=== PATIENT | female | born 1990 | race Caucasian/White ===

== ENCOUNTER → 2017-08-16 | Outpatient (CLI) | payer OTHER ==
[~2017-08-16] MED LIST: ACET325 PO; ALBU90OI INH; Amoxicillin500 MG PO; Augmentin 875-1 EACH PO; CLARITIN10 MG PO; CODACE30 PO; CYCL10 PO; Ciprodex Otic7.5 ML LEFTEAR; Cortisporin Ear10 M1 LEFTEAR; DIPH50 PO; DOXY100 PO; EPIPEN 2-P0.3 MG/0.3 IM; FERR325 PO; HYDACE5 PO; IBUP400 PO; IBUP800 PO; IRON18 MG PO; LEVFLO500 PO; METPRE4DP PO; MULVITMINE PO; NITR100CA PO; Norco 5-325 Ta1 EACH PO; OXYACE5T PO; PROM25 PO; PYRI50 PO; Pepcid40 MG PO; Percocet 5-3251 EACH PO; Prednisone20 MG PO; Verotin-Gr Cap1 EACH PO; Zithromax Tri-500 MG PO; Zofran Odt4 MG SL
== END ==
LOC: LAB SHORT 16:28
DX: R30.0 Dysuria (principal)
CPT/HCPCS: 87077; 87086; 87186

== ENCOUNTER 2017-11-10 10:51 | Inpatient (IN) | payer OTHER ==
[~2017-11-10] VITALS: Ht 172.7 cm; Wt 80.7 kg
[~2017-11-10 10:51] MED LIST changes: -CLARITIN10 MG PO; -EPIPEN 2-P0.3 MG/0.3 IM; -IRON18 MG PO; -Percocet 5-3251 EACH PO; -Prednisone20 MG PO
[2018-01-04] MEDS ORDERED: Verotin-Gr Cap1 EACH PO (21:59)
[2018-01-04] MEDS ORDERED: CLARITIN10 MG PO (22:04)
[2018-01-04] MEDS ORDERED: Pepcid40 MG PO (22:04)
[2018-01-04] MEDS ORDERED: EPIPEN 2-P0.3 MG/0.3 IM (22:04)
[2018-01-04] MEDS ORDERED: Prednisone20 MG PO (22:04)
[2018-01-19 10:55] LABS: BASOPHILS ABSOLUTE AUTO 0.04 K/mm3 (0.00-0.23); BASOPHILS PERCENT AUTO 0 % (0-2); EOSINOPHILS ABSOLUTE AUTO 0.12 K/mm3 (0.00-0.68); EOSINOPHILS PERCENT AUTO 1 % (0-6); Hematocrit 36.5 % (33.0-51.0); Hemoglobin 12.3 g/dL (11.5-16.0); IMMATURE GRAN ABSOLUTE AUTO 0.51 K/mm3 (0.00-0.10); IMMATURE GRAN PERCENT AUTO 4 % (0-1); LYMPHOCYTES ABSOLUTE AUTO 2.52 K/mm3 (0.84-5.20); LYMPHOCYTES PERCENT AUTO 18 % (21-46); MONOCYTES ABSOLUTE AUTO 1.01 K/mm3 (0.16-1.47); MONOCYTES PERCENT AUTO 7 % (4-13); Mean Corpuscular HGB 28.5 pg (26.0-34.0); Mean Corpuscular HGB Conc 33.7 g/dL (31.5-36.5); Mean Corpuscular Volume 85 fL (80-100); Mean Platelet Volume 9.9 fL (9.1-12.4); NEUTROPHILS ABSOLUTE AUTO 9.93 K/mm3 (1.96-9.15); NEUTROPHILS PERCENT AUTO 70 % (41-73); Platelet Count 284 K/mm3 (150-400); RDW Coefficient Variation 14.1 % (11.7-14.2); RDW Standard Deviation 43.4 fL (35.1-46.3); Red Blood Cell Count 4.32 M/mm3 (3.80-5.20); White Blood Cell Count 14.13 K/mm3 (4.00-11.30)
[2018-01-20] MEDS ORDERED: IRON18 MG PO (07:27)
[2018-01-20 09:27] LABS: PO2 Cord - Arterial 15.8 mmHg (16-20); pH Cord - Arterial 7.31 (7.28-7.35)
[2018-01-20 09:28] LABS: PCO2 Cord - Venous 44.9 mmHg (40-50); PO2 Cord - Venous 26.4 mmHg (28-32); pH Umbilical Cord - Venous 7.37 (7.26-7.35)
[2018-01-21 05:28] LABS: Hematocrit 32.4 % (33.0-51.0); Hemoglobin 10.9 g/dL (11.5-16.0); Mean Corpuscular HGB Conc 33.6 g/dL (31.5-36.5); Mean Corpuscular Volume 86 fL (80-100); Mean Platelet Volume 10.2 fL (9.1-12.4); Platelet Count 223 K/mm3 (150-400); RDW Coefficient Variation 14.3 % (11.7-14.2); RDW Standard Deviation 44.5 fL (35.1-46.3); Red Blood Cell Count 3.76 M/mm3 (3.80-5.20); White Blood Cell Count 13.39 K/mm3 (4.00-11.30)
[2018-01-21] MEDS ORDERED: IBUP800 PO (12:58)
[2018-01-21] MEDS ORDERED: Percocet 5-3251 EACH PO (12:58)
== END 2018-01-21 14:00 | disposition home or self-care (01) | DRG 766 ==
LOC: BC 01-20 06:33
PROVIDERS: Obstetrics & Gynecology
PROC: 10D00Z1 Extraction of Products of Conception, Low, Open Approach (ICD-10-PCS; principal; 2018-01-20 08:30)
DX: O34.219 Maternal care for unspecified type scar from previous cesarean delivery (principal); Z37.0 Single live birth; Z3A.38 38 weeks gestation of pregnancy; K21.9 Gastro-esophageal reflux disease without esophagitis; O99.62 Diseases of the digestive system complicating childbirth; O69.81X0 Labor and delivery complicated by cord around neck, without compression, not applicable or unspecified
CPT/HCPCS: 36415; 82803; 85025; 85027; 86850; 86900; 86901; J0694; J1885; J2590; J2765; J3010; J7120

== ENCOUNTER 2018-01-04 20:41 | Emergency (ER) | payer OTHER ==
[~2018-01-04] VITALS: Ht 172.7 cm; Wt 77.6 kg
[2018-01-04] MEDS ORDERED: Verotin-Gr Cap1 EACH PO (21:59)
[2018-01-04] MEDS ORDERED: CLARITIN10 MG PO (22:04)
[2018-01-04] MEDS ORDERED: EPIPEN 2-P0.3 MG/0.3 IM (22:04)
[2018-01-04] MEDS ORDERED: Pepcid40 MG PO (22:04)
[2018-01-04] MEDS ORDERED: Prednisone20 MG PO (22:04)
== END 2018-01-04 22:13 | disposition home or self-care (01) ==
LOC: ER 20:41
DX: O99.89 Other specified diseases and conditions complicating pregnancy, childbirth and the puerperium (principal); T78.40XA Allergy, unspecified, initial encounter; R21 Rash and other nonspecific skin eruption; Z88.8 Allergy status to other drugs, medicaments and biological substances; O99.333 Smoking (tobacco) complicating pregnancy, third trimester; F17.210 Nicotine dependence, cigarettes, uncomplicated; Z3A.36 36 weeks gestation of pregnancy
CPT/HCPCS: 94640; 96374; 96375; 99283; J1100; J3490

== ENCOUNTER → 2018-01-12 | Outpatient (CLI) | payer OTHER ==
[~2018-01-12] MED LIST changes: +CLARITIN10 MG PO; +EPIPEN 2-P0.3 MG/0.3 IM; +Prednisone20 MG PO
== END | disposition home or self-care (01) ==
LOC: LAB 16:19 → LAB SHORT 16:19
DX: R30.0 Dysuria (principal)
CPT/HCPCS: 87077; 87086; 87186

== ENCOUNTER → 2018-01-13 | Outpatient (CLI) | payer OTHER | END | disposition home or self-care (01) | LOC: LAB SHORT 11:30 → LAB 11:30 | DX: R30.0 Dysuria (principal) | CPT/HCPCS: 87077; 87086; 87186 ==

== ENCOUNTER 2020-01-13 20:52 | Emergency (ER) | payer SELFPAY ==
[~2020-01-13] VITALS: Ht 172.7 cm; Wt 83.9 kg
[~2020-01-13 20:52] MED LIST changes: +IRON18 MG PO; +Percocet 5-3251 EACH PO
== END 2020-01-13 22:45 | disposition home or self-care (01) ==
LOC: ER 20:52
DX: S93.402A Sprain of unspecified ligament of left ankle, initial encounter (principal); F17.200 Nicotine dependence, unspecified, uncomplicated; Z88.8 Allergy status to other drugs, medicaments and biological substances; W10.9XXA Fall (on) (from) unspecified stairs and steps, initial encounter
CPT/HCPCS: 73610; 99283-25

== ENCOUNTER → 2021-07-08 | Outpatient (CLI) | payer OTHER ==
[~2021-07-08] MED LIST changes: +CEPH500 PO; +MONDOXYNE NL100 MG PO
[2021-07-09 14:11] LABS: HPV 16 Negative (Negative); HPV 18 Negative (Negative); HPV OTHER HR TYPES Negative (Negative)
== END | disposition home or self-care (01) ==
LOC: LAB SHORT 16:40
PROVIDERS: Obstetrics & Gynecology
DX: Z12.4 Encounter for screening for malignant neoplasm of cervix (principal)
CPT/HCPCS: 87624; G0123

== ENCOUNTER 2021-07-25 10:07 | Emergency (ER) | payer OTHER ==
[~2021-07-25] VITALS: Ht 172.7 cm; Wt 74.8 kg
[2021-07-25] MEDS ORDERED: CYCL10 PO (10:47)
== END 2021-07-25 11:01 | disposition home or self-care (01) ==
LOC: ER 10:07
DX: M54.50 Low back pain, unspecified (principal); F17.210 Nicotine dependence, cigarettes, uncomplicated; Z87.440 Personal history of urinary (tract) infections
CPT/HCPCS: 96372; 99283-25; A9270; J1885

== ENCOUNTER 2021-09-07 12:41 | Day surgery (SDC) | payer OTHER ==
[~2021-09-07] VITALS: Ht 172.7 cm; Wt 74.2 kg
--- NOTE | 2021-09-07 14:21 | NUR ---
09/07/21 1421 Asa Goodwin ABDOMINAL AREA PREPPED WITH DURA PREP BY ORSC.HSR MARIE AREA & THIGHS PREPPED WITH BETADINE SOLUTION BY ORSC.KNM BUPIVACAINE 0.5% 30 MLS MIXED WITH EPI 0.15ML PER ORDER TO CONSTITUTE BUPIVACAINE 0.5% 1:200,000 FOR INJECTION AT OPSITE BY DR POWERS.
== END 2021-09-07 15:44 | disposition home or self-care (01) ==
LOC: ORSCSDS 12:41
PROVIDERS: Obstetrics & Gynecology
PROC: 0UT74ZZ Resection of Bilateral Fallopian Tubes, Percutaneous Endoscopic Approach (ICD-10-PCS; principal; 2021-09-07 14:00)
DX: Z30.2 Encounter for sterilization (principal); F17.210 Nicotine dependence, cigarettes, uncomplicated
CPT/HCPCS: 88302; J0171; J0330; J1100; J1885; J2250; J2405; J2704; J3010; J7120

== ENCOUNTER 2022-06-17 23:40 | Inpatient (IN) | payer OTHER ==
[~2022-06-17] VITALS: Ht 172.7 cm; Wt 77.7 kg
[2022-06-18 00:31] LABS: BASOPHILS ABSOLUTE AUTO 0.06 K/mm3 (0.00-0.23); BASOPHILS PERCENT AUTO 0 % (0-2); EOSINOPHILS ABSOLUTE AUTO 0.14 K/mm3 (0.00-0.68); EOSINOPHILS PERCENT AUTO 1 % (0-6); Hematocrit 42.4 % (33.0-51.0); Hemoglobin 14.7 g/dL (11.5-16.0); IMMATURE GRAN PERCENT AUTO 1 % (0-1); LYMPHOCYTES ABSOLUTE AUTO 3.91 K/mm3 (0.84-5.20); LYMPHOCYTES PERCENT AUTO 26 % (21-46); MONOCYTES ABSOLUTE AUTO 0.84 K/mm3 (0.16-1.47); MONOCYTES PERCENT AUTO 6 % (4-13); Mean Corpuscular HGB 29.6 pg (26.0-34.0); Mean Corpuscular HGB Conc 34.7 g/dL (31.5-36.5); Mean Corpuscular Volume 85 fL (80-100); NEUTROPHILS ABSOLUTE AUTO 9.89 K/mm3 (1.96-9.15); NEUTROPHILS PERCENT AUTO 66 % (41-73); Platelet Count 176 K/mm3 (150-400); RDW Standard Deviation 40.2 fL (35.1-46.3); Red Blood Cell Count 4.97 M/mm3 (3.80-5.20); White Blood Cell Count 14.94 K/mm3 (4.00-11.30)
[2022-06-18 01:09] LABS: Albumin, Blood 3.7 g/dL (3.4-5.0); Albumin/Globulin Ratio 1.1 (0.8-1.8); Bilirubin, Total 0.3 mg/dL (0.1-1.0); Bun/Creatinine Ratio 15.8 (12.0-20.0); Calcium, Blood 8.9 mg/dL (8.5-10.1); Creatinine, Blood 0.57 mg/dL (0.40-1.00); Globulin, Blood 3.5 g/dL (2.2-4.0); Total Protein, Blood 7.2 g/dL (6.4-8.2)
[2022-06-18] MEDS ORDERED: Ventolin/Prove6.7 GM INH ×2 (02:17)
[2022-06-18] MEDS ORDERED: Cetirizine HCl10 MG PO ×2 (02:19)
--- NOTE | 2022-06-18 04:32 | NUR ---
SUMMARY PT ARRIVED TO FLOOR IN NO DSTRESS. PT DENIES N/V. PT HAS BEEN MANAGED WELL. PT HAS REMAINED NPO. PT HAS BEEN RESTING COMFORTABLY. CALL EDDIE IN REACH.
--- NOTE | 2022-06-18 11:31 | NUR ---
REPORT PASSED TO [facility]
--- NOTE | 2022-06-18 13:45 | NUR ---
06/18/22 1345 Denise Live PATIENT ON SCHEDULED ANTIBIOTICS
[2022-06-18] MEDS ORDERED: OXYC10TA19 PO ×2 (17:13)
[2022-06-18] MEDS ORDERED: BENADRYL25 MG PO ×2 (17:20)
[2022-06-18] MEDS ORDERED: ACET325 PO ×2 (17:20)
[2022-06-18] MEDS ORDERED: IBUP200 PO ×2 (17:20)
--- NOTE | 2022-06-18 18:51 | NUR ---
DISCHARGE SUMMARY PATIENT WENT FOR [facility] THIS AFTERNOON WITH DR MOSS. RETURNED TO ROOM AT 1530. POST OP VSS. ALERT AND ORIENTED. AMBULATING TO BATHROOM. VOIDING WELL. TOLERATING REGULAR DIET AND LIQUIDS. LAP SITES C/D/I. PAIN CONTROLLED WITH PO PAIN MEDS. IV DC'D WNL. DISCHARGE ORDER GIVEN BY DR MOSS. DISCHARGE EDUCATION GIVEN ON NEW RX FOR PAIN, INCISION CARE, ACTIVITY, AND FOLLOW UP APPTS. PATIENT LEFT UNIT AT 1820 VIA WHEELCHAIR WITH FAMILY MEMBER FOR HOME.
== END 2022-06-18 19:19 | disposition home or self-care (01) | DRG 419 ==
LOC: ER 23:40 → SURS 06-18 01:48
PROVIDERS: Student in an Organized Health Care Education/Training Program; ADMIT Surgery
PROC: 0FT44ZZ Resection of Gallbladder, Percutaneous Endoscopic Approach (ICD-10-PCS; principal; 2022-06-18 12:30)
DX: K80.10 Calculus of gallbladder with chronic cholecystitis without obstruction (principal); F17.210 Nicotine dependence, cigarettes, uncomplicated; J45.909 Unspecified asthma, uncomplicated; Z98.51 Tubal ligation status; Z88.1 Allergy status to other antibiotic agents; Z91.018 Allergy to other foods; Z79.899 Other long term (current) drug therapy; Z87.440 Personal history of urinary (tract) infections; Z98.890 Other specified postprocedural states; Z79.51 Long term (current) use of inhaled steroids; Z88.8 Allergy status to other drugs, medicaments and biological substances
CPT/HCPCS: 36415; 76705; 80053; 83690; 85025; 88304; A9270; J1100; J1170; J1885; J2250; J2405; J2543; J2704; J2765; J2795; J3010; J7030; J7120

== ENCOUNTER 2022-06-20 07:28 | Emergency (ER) | payer OTHER ==
[~2022-06-20] VITALS: Ht 172.7 cm; Wt 77.6 kg
[~2022-06-20 07:28] MED LIST changes: +BENADRYL25 MG PO; +Cetirizine HCl10 MG PO; +IBUP200 PO; +OXYC10TA19 PO; +Ventolin/Prove6.7 GM INH
[2022-06-20] MEDS ORDERED: BENADRYL25 M1 PO (09:55)
[2022-06-20] MEDS ORDERED: PRED20 PO (09:55)
[2022-06-20] MEDS ORDERED: FAMO20 PO (09:55)
== END 2022-06-20 10:43 | disposition home or self-care (01) ==
LOC: ER 07:28
DX: T78.40XA Allergy, unspecified, initial encounter (principal); F17.210 Nicotine dependence, cigarettes, uncomplicated; Z88.1 Allergy status to other antibiotic agents; Z88.8 Allergy status to other drugs, medicaments and biological substances; Z79.899 Other long term (current) drug therapy
CPT/HCPCS: 94640; 94664; J1100; J1200; J7030

== ENCOUNTER 2022-06-22 08:20 | Inpatient (IN) | payer OTHER ==
[~2022-06-22] VITALS: Ht 172.7 cm; Wt 59.0 kg
[~2022-06-22 08:20] MED LIST changes: +BENADRYL25 M1 PO; +FAMO20 PO; +PRED20 PO
[2022-06-22 10:00] LABS: BASOPHILS ABSOLUTE AUTO 0.02 K/mm3 (0.00-0.23); BASOPHILS PERCENT AUTO 0 % (0-2); EOSINOPHILS ABSOLUTE AUTO 0.04 K/mm3 (0.00-0.68); EOSINOPHILS PERCENT AUTO 1 % (0-6); Hematocrit 42.5 % (33.0-51.0); Hemoglobin 14.6 g/dL (11.5-16.0); IMMATURE GRAN ABSOLUTE AUTO 0.08 K/mm3 (0.00-0.10); IMMATURE GRAN PERCENT AUTO 1 % (0-1); LYMPHOCYTES ABSOLUTE AUTO 2.29 K/mm3 (0.84-5.20); LYMPHOCYTES PERCENT AUTO 28 % (21-46); MONOCYTES PERCENT AUTO 10 % (4-13); Mean Corpuscular HGB 29.4 pg (26.0-34.0); Mean Corpuscular HGB Conc 34.4 g/dL (31.5-36.5); Mean Corpuscular Volume 86 fL (80-100); Mean Platelet Volume 10.4 fL (9.1-12.4); NEUTROPHILS ABSOLUTE AUTO 4.83 K/mm3 (1.96-9.15); NEUTROPHILS PERCENT AUTO 60 % (41-73); Platelet Count 244 K/mm3 (150-400); RDW Coefficient Variation 13.3 % (11.7-14.2); RDW Standard Deviation 41.7 fL (35.1-46.3); Red Blood Cell Count 4.96 M/mm3 (3.80-5.20); White Blood Cell Count 8.06 K/mm3 (4.00-11.30)
[2022-06-22 10:42] LABS: Albumin, Blood 3.7 g/dL (3.4-5.0); Bilirubin, Total 1.4 mg/dL (0.1-1.0); Bun/Creatinine Ratio 18.8 (12.0-20.0); Calcium, Blood 9.3 mg/dL (8.5-10.1); Creatinine, Blood 0.59 mg/dL (0.40-1.00); Globulin, Blood 3.8 g/dL (2.2-4.0); Potassium, Blood 3.8 mmol/L (3.5-5.5); Total Protein, Blood 7.5 g/dL (6.4-8.2)
--- NOTE | 2022-06-22 19:56 | NUR ---
SHIFT SUMMARY PT ARRIVED TO THE FLOOR VIA GOURNEY AND REPORTED FEELING PAINFUL IN HER ABD, SYSTEM ADMINISTRATION ADVISOR HAD REPORTED GIVING MULTIPLE DOSES OF PAIN MEDICATIONS WHILE SHE WAS DOWN THERE. PT SETTLED IN ROOM AND PROVIDED PAIN MEDICATIONS ORDERED (SEE EMAR), PT WAS ABLE TO REST FOR A WHILE BEFORE NEEDING MORE PAIN MEDICATIONS. ADMISSION ASSESSMENT UNREMARKABLE OTHER THAN ABD TENDERNESS AND LAP SITES FROM PRIOR [facility], STERI STRIPS INTACT. PT TOLERATING CLEAR DIET ORDERED. REPORT GIVEN TO MARGUERITE RN.
--- NOTE | 2022-06-23 00:24 | NUR ---
PAIN MANAGEMENT PT MEDICATED PER EMAR FOR ABD PAIN. EDUCATED ON NONPHARMACOLOGICAL METHODS OF PAIN MANAGEMENT AND BOWEL CARE. THE PATIENT HAS DENIED ALL METHODS OF PAIN CONTROL BESIDES MEDICATION AND K PAD USE T/O THE SHIFT. PLAN TO CONTINUE EDUCATING AND ENCOURAGING THE PATIENT TO USE NONPHARM METHODS ALONGSIDE MEDICATION USE.
--- NOTE | 2022-06-23 04:44 | NUR ---
POD5 FOR A LAP PARADISE FROM A PREVIOUS ADMISSION. X3 LAP SITES ARE C/D/I, DRIED EXUDATE NOTED ON STERI STRIPS. VSS, PT PLACED ON 2L O2 VIA NC FOR SATS DROPPING DUE TO PAIN MEDICATION. PAIN HAS BEEN DIFFICULT TO CONTROL T/O THE NIGHT, REGUARLY ROTATING NORCO AND DILAUDID. THE PT HAS UTILIZED THE K PAD T/O THE NIGHT. EDUCATED T/O THE NIGHT ABOUT BOWEL CARE AND NONPHARMACOLOGICAL PAIN MANAGEMENT METHODS, THE PT WAS RELUCTANT TO PARTICIPATE DUE TO PAIN LEVEL. PT VOIDING W/O DIFFICULTY, PASSING FLATTUS, AND TOLLERATING MINIMAL PO INTAKE. PLAN FOR PT TO HAVE A HIDA SCAN TODAY, CARE WILL BE DICTATED BY THESE FINDINGS. THE PATIENT IS CURRENTLY SLEEPING, IN NO DISTRESS, CALL LIGHT IN REACH.
[2022-06-23 05:19] LABS: Albumin, Blood 3.1 g/dL (3.4-5.0); Bilirubin, Total 1.4 mg/dL (0.1-1.0); Bun/Creatinine Ratio 12.5 (12.0-20.0); Calcium, Blood 8.4 mg/dL (8.5-10.1); Creatinine, Blood 0.48 mg/dL (0.40-1.00); Potassium, Blood 3.8 mmol/L (3.5-5.5); Total Protein, Blood 6.1 g/dL (6.4-8.2)
--- NOTE | 2022-06-23 08:49 | NUR ---
PT OUT OF ROOM FOR HIDA SCAN
--- NOTE | 2022-06-23 10:32 | NUR ---
PT BACK FROM HIDA SCAN ADMINISTERED AM MEDS AND MEDICATED PER ORDERS FOR 7/10 R SIDE ABDOMINAL PAIN. PT STATES PASSING FLATUS. RESTARTED IV FLUIDS PER ORDERS. FAMILY AT BEDSIDE. CALL LIGHT IN REACH.
--- NOTE | 2022-06-23 12:46 | NUR ---
CARE TURNED OVER TO ANNE MARIE Ramos RN BEDSIDE REPORT COMPLETED.
--- NOTE | 2022-06-23 18:43 | NUR ---
SHIFT SUMMARY SINCE ASSUMING CARE AROUND 1300, PT HAS BEEN PLEASANT. AMBULATING EVERY HOUR. PASSING LOTS OF GAS. ADVANCED DIET BUT ONLY TAKING SMALL BITES BUT DRINKING FLUIDS WELL.
--- NOTE | 2022-06-24 03:16 | NUR ---
PRODUCT DEMONSTRATOR SUMMARY PT IS POD 5 FOR LAP [facility]. AAOX4 AND PLEASANT. INDEPENDENT IN ROOM AND GOES FOR WALKS AT TIMES. PT CONTINUES TO HAVE PAIN TO HER RIGHT SIDE THAT RADIATES FROM HER HIP TO HER SHOULDER PER PT. NO VISIBLE SKIN BRUISING/DISCOLORATION NOTED TO R SIDE ON ASSESSMENT. MEDICATING PT WITH IV DILAUDID AND IV TORADOL PER EMAR. PT HAS BEEN ABLE TO SLEEP FOR AN HOUR OR 2 AT A TIME OFF/ON TONIGHT. VSS, WILL CONTINUE TO MONITOR.
[2022-06-24 06:06] LABS: Albumin, Blood 3.1 g/dL (3.4-5.0); Albumin/Globulin Ratio 0.9 (0.8-1.8); Bilirubin, Total 1.1 mg/dL (0.1-1.0); Bun/Creatinine Ratio 11.9 (12.0-20.0); Calcium, Blood 8.7 mg/dL (8.5-10.1); Creatinine, Blood 0.5 mg/dL (0.40-1.00); Globulin, Blood 3.4 g/dL (2.2-4.0); Potassium, Blood 3.8 mmol/L (3.5-5.5); Total Protein, Blood 6.5 g/dL (6.4-8.2)
--- NOTE | 2022-06-24 11:28 | NUR ---
PT HAS BEEN AMBULATING THE HALLS THIS AM, REPORTS HAVING A BM THIS AM, REPORTS PAIN IS TOLERABLE WITH OXYCODONE, DC INSTRUCTIONS GIVEN, VERBALIZED UNDERSTANDING, PT DC'D HOME WITH FAMILY.
== END 2022-06-24 11:47 | disposition home or self-care (01) | DRG 948 ==
LOC: ER 08:20 → SURS 08:21
PROVIDERS: Emergency Medicine; Surgery; ADMIT Surgery
DX: G89.18 Other acute postprocedural pain (principal); R10.11 Right upper quadrant pain; F17.210 Nicotine dependence, cigarettes, uncomplicated; Z28.21 Immunization not carried out because of patient refusal; Z87.440 Personal history of urinary (tract) infections; Z98.891 History of uterine scar from previous surgery; Z79.899 Other long term (current) drug therapy; Y83.6 Removal of other organ (partial) (total) as the cause of abnormal reaction of the patient, or of later complication, without mention of misadventure at the time of the procedure
CPT/HCPCS: 36415; 74177; 74181; 78226; 80053; 83690; 84703; 85025; 94664; 94667; 94760; 96361; 96374-59; 96375-59; 96376-59; 98960; 99285-25; 99407; A9270; A9537; J1170; J1650; J1885; J2405; J7030; J7120; Q9967

== ENCOUNTER → 2023-03-17 | Outpatient (CLI) | payer OTHER | LOC: LAB 17:57 → LAB SHORT 17:57 | DX: R82.79 Other abnormal findings on microbiological examination of urine (principal) | CPT/HCPCS: 87077; 87086; 87186 ==